=== PATIENT | female | born 1940 | race Caucasian/White ===

== ENCOUNTER 2019-07-06 | Emergency (ER) | payer MEDICARE, MEDICAID ==
[2019-07-06] MEDS ORDERED: SOMA350 MG PO (10:43)
[2019-07-06] MEDS ORDERED: ELIQUIS2.5 MG PO (10:43)
[2019-07-06] MEDS ORDERED: LOSARTAN POTASS25 MG PO (10:44)
[2019-07-06] MEDS ORDERED: OXYCONTIN (10:45)
[2019-07-06] MEDS ORDERED: DICYCLOMINE10 MG PO (10:45)
== END 2019-07-06 11:50 | disposition home or self-care (01) ==
DX: S93.402A Sprain of unspecified ligament of left ankle, initial encounter (principal); I73.9 Peripheral vascular disease, unspecified; X50.0XXA Overexertion from strenuous movement or load, initial encounter; Z79.01 Long term (current) use of anticoagulants; Z98.890 Other specified postprocedural states

== ENCOUNTER 2020-09-07 11:19 | Observation (INO) | payer MEDICARE, MEDICAID ==
[~2020-09-07] VITALS: Ht 149.9 cm; Wt 52.0 kg
[~2020-09-07 11:19] MED LIST: DICYCLOMINE10 MG PO; ELIQUIS2.5 MG PO; LOSARTAN POTASS25 MG PO; OXYCONTIN; SOMA350 MG PO
--- NOTE | 2020-09-07 11:28 | NUR ---
TRANSFERED FROM EMS STRETCHER TO BED ALERT ORIENTED AND INTERACTIVE
[2020-09-07 11:54] LABS: GFR > 60 ML/MIN (>=60 (CALC)); GFR FOR AFR.AMER. > 60 ML/MIN (>=60 (CALC))
--- NOTE | 2020-09-07 12:14 | NUR ---
PATIENT'S SISTER GIVEN GRADY FOUR YELLOW NECKLACES
[2020-09-07 12:17] LABS: HEMATOCRIT 36.8 % (37.0-47.0); HEMOGLOBIN 11.8 g/dl (12.0-16.0); IMMATURE GRANULOCYTES 1.6 % (0.0-5.0); MEAN CELL VOLUME 98.7 fL CALC (80.0-100.0); MEAN CORPUSCULAR HGB 31.6 pG CALC (26.0-32.0); MEAN CORPUSCULAR HGB CONC 32.1 g/dL CAL (32.0-36.0); NEUT# 21.51 thou/uL (2.00-7.15); RED BLOOD COUNT 3.73 mill/uL (4.20-5.60); RED CELL DISTRI WIDTH 13.3 % (11.5-15.5)
[2020-09-07 12:23] LABS: URINE BLOOD DIPSTICK NEGATIVE (NEGATIVE); URINE COLOR YELLOW; URINE GLUCOSE - DIPSTICK NEGATIVE (NEGATIVE); URINE KETONE TRACE mg/dL (NEGATIVE); URINE LEUK ESTERASE NEGATIVE (NEGATIVE); URINE PH 7.5 (4.5-8.0); URINE PROTEIN - DIPSTICK TRACE mg/dL (NEG-TRACE); URINE UROBILINOGEN - DIPSTICK 0.2 E.U./dL (0.2)
[2020-09-07 12:27] LABS: URINE BILIRUBIN - DIPSTICK SMALL (NEGATIVE)
[2020-09-07 12:28] LABS: URINE NITRITE - DIPSTICK NEGATIVE (Negative)
[2020-09-07 12:42] LABS: ALBUMIN 3.4 g/dL (3.2-5.0); ALKALINE PHOSPHATASE 64 u/l (38-126); ANION GAP 9 (6-22 (CALC)); BILIRUBIN, TOTAL 1.2 mg/dL (0.0-1.4); BUN 18 mg/dL (8-23); BUN/CREATININE RATIO 37 (12-20 (CALC)); CARBON DIOXIDE 25 mmol/l (22-30); CHLORIDE 101 mmol/l (95-108); CREATININE 0.5 mg/dL (0.5-1.0); GFR > 60 ML/MIN (>=60 (CALC)); GFR FOR AFR.AMER. > 60 ML/MIN (>=60 (CALC)); LIPASE 25 u/l (23-300); POTASSIUM 3.9 mmol/l (3.5-5.1); SGOT/AST 30 u/l (9-36); SODIUM 132 mmol/l (137-146); TOTAL PROTEIN 5.6 g/dL (6.3-8.2)
--- NOTE | 2020-09-07 16:27 | NUR ---
REPORT CALLED TO WILMA JONES
[2020-09-07] MEDS ORDERED: METOPROL TAR25 MG PO (16:33)
[2020-09-07 17:26] VITALS: BP 131/62
--- NOTE | 2020-09-07 17:50 | NUR ---
REPORT RECEIVED FROM MARY ANNE IN ED, PT ARRIVED ON UNIT @ 1720 TRANSPORTED VIA STRETCHER, AMBULATED TO BED, ALERT AND ORIENED X 3, C/O BEING HUNGRY AND ASKING FOR SOMETHING TO EAT, VOWES SHE WILL GO HOME IF SHE DOESNT GET TO EAT, SPOUSE ARRIVED, SHE IS TELLING SPOUSE SHE WANTS TO GO HOME AND ISNT STAYING HERE, SOB ON EXERTION, STATES SHE TAKES BREATHING TREATMENT DAILY. ORIENTED TO ROOM AND CALL CABRERA, WILL CONTINUE TO MONITOR.
[2020-09-07 19:00] VITALS: BP 118/48
--- NOTE | 2020-09-07 19:20 | NUR ---
PT EDUCATED/INFORMED OF NEGATIVE EFFECTS OF HAVING MANY BLANKETS ON WHILE FEBRILE BUT ADAMANTLY DEMANDED TO HAVE HER BLANKETS ON AND THAT SHE WOULD LEAVE IF NOT ALLOWED TO HAVE THEM ON, GUILLE JONES NOTIFIED.
--- NOTE | 2020-09-07 20:01 | NUR ---
PATIENT RESTING IN BED WITH O2 OFF-O2 VIA NASAL CANNULA AT 2LPM. PATIENT IS SOB AT REST. PATIENT WITH PRODUCTIVE COUGH-YELLOW WITH STREAKS OF BLOOD. PATIENT STATES THAT SHE IS DEPENDANT ON O2 AT HOME. PATIENT WITH TEMP OF 101.2-MEDICATED WITH TYLENOL 650MG PO. PATIENT ASSISTED OOB TO BSC TO VOID 150CC OF [place] URINE. UNSTEADY ON HER FEET. ASSISTED PATIENT BACK TO THE BED. PATIENT WITH IV SITE TO LEFT HAND INTACT AND IVF NS PATENT AND INFUSING AT 100CC/HR. SITE IS HEALTHY AT THIS TIME. AZITHROMYCIN HUNG ORDERED. PATIENT IS ALERT AND ORIENTEDX3. STATES THAT SHE LIVES WITH HER AND DAUGHTER. DINNER TRAY AT BEDSIDE. PATIENT STATES THAT WILL EAT WHEN SHE IS READY. NEB TREATMENT GIVEN PER PATIENT REQUEST. SAFETY PRECAUTIONS REINFORCED. BED ALARM IN PLACE FOR PATIENT SAFETY. CALL LIGHT IN REACH. WILL CONT TO MONITOR.
--- NOTE | 2020-09-07 21:00 | NUR ---
PATIENT ASSISTED WITH PERSONAL CARE-TEMP IS DOWN TO 99.7 AT THIS TIME. LINENS WERE CHANGED. PATIENT REFUSING DINNER TRAY AT THIS TIME-STATES THAT SHE ONLY WANTS SOMETHING TO DRINK-NO FOOD AT THIS TIME. O2 REMAINS IN PLACE AT 2LPM. O2 SATS AT 97%. SAFETY PRECATIONS REINFORCED. BED ALARM IN PLACE FOR PATIENT SAFETY. CALL LIGHT IN REACH. WILL CONT TO MONITOR.
--- NOTE | 2020-09-07 22:48 | NUR ---
PATIENT RESTING IN BED WITH EYES CLOSED. O2 VIA NASAL CANNULA IN PLACE. RESPS ARE EVEN AND UNLABORED AT THIS TIME. IVF PATENT AND INFUSING VIA LEFT HAND SITE AT 100CC/HR. TELE MONITOR IN PLACE. BED ALARM IN PLACE FOR PATIENT SAFETY. CALL LIGHT IN REACH. WILL CONT TO MONITOR.
[2020-09-07 23:30] VITALS: BP 82/54
--- NOTE | 2020-09-08 02:36 | NUR ---
PATIENT RESTING IN BED-FOUND WITH O2 OFF-REAPPLIED AT 2LPM VIA NASAL CANNULA. TELE MONITOR IN PLACE. IVF NS PATENT AND INFUSING VIA LEFT HAND SITE. CALL LIGHT IN REACH. BED ALARM IN PLACE FOR PATIENT SAFETY. CALL LIGHT IN REACH. WILL CONT TO MONITOR.
[2020-09-08 04:00] VITALS: BP 118/60
--- NOTE | 2020-09-08 04:00 | NUR ---
PATIENT RESTING IN BED-O2 VIA NASAL CANNULA IN PLACE AT 2LPM. O2 SATS 96% AT THIS TIME. PATIENT ASSISTED TO THE BSC TO VOID. STILL UNSTEADY ON HER FEET. TELE MONITOR IN PLACE. IVF PATENT AND INFUSING VIA LEFT HAND. PATIENT C/O HEADACHE AND GENERALIZED PAIN-7/10 ON PAIN SCALE. TEMPS-99.9. MEDICATED WITH TYLENOL 650MG PO. CALL LIGHT IN REACH. WILL CONT TO MONITOR.
[2020-09-08 04:36] LABS: HEMATOCRIT 33.7 % (37.0-47.0); HEMOGLOBIN 10.9 g/dl (12.0-16.0); MEAN CELL VOLUME 99.7 fL CALC (80.0-100.0); MEAN CORPUSCULAR HGB 32.2 pG CALC (26.0-32.0); MEAN CORPUSCULAR HGB CONC 32.3 g/dL CAL (32.0-36.0); RED BLOOD COUNT 3.38 mill/uL (4.20-5.60); RED CELL DISTRI WIDTH 13.7 % (11.5-15.5)
[2020-09-08 04:59] LABS: ANION GAP 9 (6-22 (CALC)); BUN 13 mg/dL (8-23); BUN/CREATININE RATIO 29 (12-20 (CALC)); CARBON DIOXIDE 21 mmol/l (22-30); CHLORIDE 105 mmol/l (95-108); CREATININE 0.5 mg/dL (0.5-1.0); GFR > 60 ML/MIN (>=60 (CALC)); GFR FOR AFR.AMER. > 60 ML/MIN (>=60 (CALC)); MAGNESIUM 1.8 mg/dL (1.6-2.3); POTASSIUM 3.7 mmol/l (3.5-5.1); SODIUM 132 mmol/l (137-146)
[2020-09-08 07:57] VITALS: BP 104/39
--- NOTE | 2020-09-08 08:05 | NUR ---
REPORT RECEIVED FROM ROBERT JONES. PT RESTING IN BED SEMI FOWLERS; ALERT AND ORIENTED X 3. C/O INTERMITTENT LEFT UPPER SIDE PAIN RADIATING TO LEFT MIDDLE BACK; RATES PAIN LEVEL FROM 6/10 TO 10/10 PAIN WORSENS WITH MOVEMENT. RESPIRATIONS EVEN AND UNLABORED ON OXYGEN 2L VIA NC; LUNG SOUNDS ARE CLEAR WITH DIMINISHED BASES. #20G EMS SITE TO LEFT HAND APPEARS HEALTHY; IV FLUIDS INFUSING AT 100ML/HR. POC REVIEWED; PT ENCOURAGED TO VERBALIZE CONCERNS; PT REPORTS THAT NURSING STAFF DOES NOT LISTEN TO HER AND HAS NOT GIVEN HER HER SCHEDULED HOME MEDICATIONS SHE TAKES THEM. AFTER REVIEWING CHART, THERE WAS A MISCOMMUNICATION AND PT DID RECEIVE HER MEDICATIONS AND ACCURATE DOSING; PT RELIEVED AND ALL MEDICATIONS REVIEWED. NO OTHER CONCERNS AT THIS TIME AND PT SEEMS HAPPY WITH HER CARE. SAFETY MEASURES IN PLACE. CALL LIGHT WITHIN REACH.
--- NOTE | 2020-09-08 09:20 | NUR ---
SPUTUM SAMPLE COLLECTED AND SENT TO LAB.
[2020-09-08 10:03] VITALS: BP 104/59
--- NOTE | 2020-09-08 10:05 | NUR ---
TYLENOL GIVEN FOR MODERATE LEFT UPPER SIDE/LEFT MIDDLE BACK PAIN. DR. COLES AND PATRIC GUEVARA AT BEDSIDE.
--- NOTE | 2020-09-08 10:42 | NUR ---
Patient was assessed today and was determined that she is not a candidate for PT intervention.
[2020-09-08 11:03] VITALS: BP 106/60
--- NOTE | 2020-09-08 11:19 | NUR ---
PT HAS CONCERNS REGARDING HER MEDICATION CONDITION AND REQUESTS TO BE SENT TO [facility] WHERE HER LUNG DOCTOR HAS PRIVILAGES; AWAITING RETURN CALL FROM DR. GALLEGO REGARDING POSSIBLE TRANSFER. PT STATES THAT HER DAUGHTER DID SPEAK WITH CONTRACTS LAW PROFESSOR AND REPORTS THAT HE SAID "IT IS OK TO CHECK OUT OF THE HOSPITAL AND COME TO [facility]." PT INFORMED THAT MD MUST SPEAK WITH HOSPITALIST AND EXPLAINED PROCESS OF TRANSFERS. PT MAKING MULTIPLE PHONE CALLS TO HER DOCTORS OFFICES INCLUDING PRIMARY CARE AND CONTRACTS LAW PROFESSOR. ANXIOUS ABOUT BLOODY SPUTUM; PT REASSURED THAT STAFF ARE TAKING APPROPRIATE MEASURES REGARDING HER CARE; NEW ORDER FOR CTA. PT EDUCATED ON TESTS/PROCEDURES AND MEDICAL CONDITION; PERSISTENT THAT SHE WOULD BE MORE COMFORTABLE AT [facility] AND BECOMING INCREASINGLY ANXIOUS. OPTIONS DISCUSSED INCLUDING HER RIGHT TO LEAVE AMA. SPEAKING WITH DAUGHTER ON CELL PHONE AT THIS TIME.
--- NOTE | 2020-09-08 11:28 | NUR ---
PT NOW AGITATED; SIGNED AMA FORM. IV FLUIDS DISCONTINUED; IV SITE DISCONTINUED; TELEMETRY REMOVED. PT CALLED DAUGHTER TO BRING HER CLOTHES; PT ASKED TO REMIND DAUGHTER TO BRING HER PORTABLE OXYGEN TANK; PT REPLYS AGRESSIVELY, "I'LL LEAVE EITHER WAY, YOU CAN'T HOLD ME HERE. I'M LEAVING REGARDLESS, I CAME HERE WITHOUT OXYGEN AND I'LL LEAVE WITHOUT OXYGEN." PT DID ASK DAUGHTER TO BRING OXYGEN. EXPLAINED TO PATIENT THAT WE CARE ABOUT HER HEALTH, BREATHING, AND SAFETY; APPEARS CALMER AND LESS AGITATED. WILL CONTINUE TO MONITOR. DOOR OPEN FOR EASY VISUAL OF PATIENT, BED IN LOW POSITION, NON SKID SOCKS ON, CALL LIGHT WITHIN REACH. PT REMINDED OF CALL LIGHT USE AND ASKED TO PLEASE CALL WITH ANY NEEDS WHILE SHE WAITS FOR HER TRANSPORTATION.
--- NOTE | 2020-09-08 11:50 | NUR ---
DAUGHTER AT BEDSIDE WITH CLOTHES AND OXYGEN. DAUGHTER AND PATIENT EXPLAINED AMA FORM; PATIENT STATES THAT SHE IS GOING STRAIGHT TO [facility].
--- NOTE | 2020-09-08 12:10 | NUR ---
Left hospital in stable condition via Wheelchair with oxygen at 2 L/min via [facility] [employer] with daughter. All belongings sent with pt.
== END 2020-09-08 12:10 | disposition left against medical advice (07) ==
LOC: ED 11:19 → ED-I 15:05 → ED 15:21 → MS2 15:22
PROVIDERS: Family Medicine; Nurse Practitioner; ADMIT Internal Medicine; ATTEND Internal Medicine
DX: A41.9 Sepsis, unspecified organism (principal); J18.9 Pneumonia, unspecified organism; J44.0 Chronic obstructive pulmonary disease with (acute) lower respiratory infection; I95.9 Hypotension, unspecified; R07.9 Chest pain, unspecified; I10 Essential (primary) hypertension; I73.9 Peripheral vascular disease, unspecified; I48.0 Paroxysmal atrial fibrillation; F17.200 Nicotine dependence, unspecified, uncomplicated; Z79.01 Long term (current) use of anticoagulants; Z20.822 Contact with and (suspected) exposure to COVID-19
CPT/HCPCS: G0378